=== PATIENT | male | born 1955 | race Caucasian/White ===

== ENCOUNTER 2021-03-16 15:27 | Inpatient (IN) | payer MEDICARE, OTHER ==
[~2021-03-16] VITALS: Ht 172.7 cm; Wt 64.5 kg
[~2021-03-16 15:27] MED LIST: KEFLEX500 MG PO; LOTRIMIN CREAM15 GM TP
[2021-03-16 17:12] LABS: HEMOGLOBIN 12.5 gm/dl (14.0-17.5); RED BLOOD COUNT 4.13 M/UL (4.20-5.50); WHITE BLOOD COUNT 14.1 K/UL (4.5-11.0)
[2021-03-16 17:36] LABS: BUN/CREATININE RATIO 30 (0-10)
[2021-03-17 04:02] LABS: HEMOGLOBIN 12.4 gm/dl (14.0-17.5); RED BLOOD COUNT 4.13 M/UL (4.20-5.50)
[2021-03-17 04:03] LABS: WHITE BLOOD COUNT 22.5 K/UL (4.5-11.0)
[2021-03-17 04:29] LABS: BUN/CREATININE RATIO 26 (0-10)
[2021-03-18 10:14] LABS: HBSAG SCREEN Negative (Negative); HEP A AB, IGM Negative (Negative); HEP B CORE AB, IGM Negative (Negative); HEP C VIRUS AB 1.9 (0.0-0.9)
[2021-03-18 10:38] LABS: BUN/CREATININE RATIO 29 (0-10)
[2021-03-18 10:40] LABS: HEMOGLOBIN 11.3 gm/dl (14.0-17.5); RED BLOOD COUNT 3.79 M/UL (4.20-5.50); WHITE BLOOD COUNT 24.8 K/UL (4.5-11.0)
[2021-03-19 05:35] LABS: HEMOGLOBIN 11.4 gm/dl (14.0-17.5); RED BLOOD COUNT 3.78 M/UL (4.20-5.50); WHITE BLOOD COUNT 22.6 K/UL (4.5-11.0)
[2021-03-19 05:52] LABS: BUN/CREATININE RATIO 28 (0-10)
[2021-03-19 22:18] LABS: BORDETELLA PARAPERTUSSIS Not Detected (Not Detectd); BORDETELLA PERTUSSIS Not Detected (Not Detectd); CHLAMYDIA PNEUMONIAE Not Detected (Not Detectd); CORONAVIRUS HKU1 Not Detected (Not Detectd); CORONAVIRUS NL63 Not Detected (Not Detectd); CORONAVIRUS OC43 Not Detected (Not Detectd); CORONOAVIRUS 229E Not Detected (Not Detectd); HUMAN METAPNEUMOVIRUS Not Detected (Not Detectd); HUMAN RHINOVIRUS/ENTEROVIRUS Not Detected (Not Detectd); INFLUENZA A Not Detected (Not Detectd); INFLUENZA B Not Detected (Not Detectd); MYCOPLASMA PNEUMONIAE Not Detected (Not Detectd); PARAINFLUENZA VIRUS 1 Not Detected (Not Detectd); PARAINFLUENZA VIRUS 2 Not Detected (Not Detectd); PARAINFLUENZA VIRUS 3 Not Detected (Not Detectd); PARAINFLUENZA VIRUS 4 Not Detected (Not Detectd); RESPIRATORY SYNCYTIAL VIRUS Not Detected (Not Detectd)
[2021-03-19 23:21] LABS: SARS-CoV-2 NOT DETECTED (Not Detectd)
[2021-03-20 05:56] LABS: BUN/CREATININE RATIO 41 (0-10)
--- NOTE | 2021-03-20 06:19 | NUR ---
0515 5 RANDOM TICKS FOUND ON PATIENTS BODY DURING BATH. INFORMED. NO NEW ORDERS.
[2021-03-20 08:58] LABS: HEMOGLOBIN 10.4 gm/dl (14.0-17.5); RED BLOOD COUNT 3.48 M/UL (4.20-5.50)
[2021-03-20 08:59] LABS: WHITE BLOOD COUNT 14.3 K/UL (4.5-11.0)
[2021-03-21 05:27] LABS: HEMOGLOBIN 11.7 gm/dl (14.0-17.5)
[2021-03-21 05:29] LABS: RED BLOOD COUNT 3.91 M/UL (4.20-5.50); WHITE BLOOD COUNT 18.2 K/UL (4.5-11.0)
[2021-03-21 05:53] LABS: BUN/CREATININE RATIO 52 (0-10)
[2021-03-21 14:40] LABS: ADENOVIRUS F 40/41 Not Detected (Negative); ASTROVIRUS Not Detected (Negative); CAMPYLOBACTER Not Detected (Negative); CLOSTRIDIUM DIFFICILE TOX A/B Not Detected (Negative); CRYPTOSPORIDIUM Not Detected (Negative); E.COLI 0157 Not Detected (Negative); ENTAMOEBA HISTOLYTICA Not Detected (Negative); ENTEROAGGREGATIVE E.COLI (EAEC Not Detected (Negative); ENTEROPATHOGENIC E.COLI (EPEC) Not Detected (Negative); ENTEROTOXIGENIC E.COLI (ETEC) Not Detected (Negative); GIARDIA LAMBLIA Not Detected (Negative); NOROVIRUS GI/GII Not Detected (Negative); PLESIOMONAS SHIGELLOIDES Not Detected (Negative); ROTOVIRUS A Not Detected (Negative); SALMONELLA Not Detected (Negative); SAPOVIRUS Not Detected (Negative); SHIG/ENTEROINVAS.ECOLI (EIEC) Not Detected (Negative); SHIGA-LIK TOX.PRO.E.COLI (STEC Not Detected (Negative); VIBRIO Not Detected (Negative); VIBRIO CHOLERAE Not Detected (Negative); YERSINIA ENTEROCOLITICA Not Detected (Negative)
[2021-03-22 04:34] LABS: HEMOGLOBIN 13.1 gm/dl (14.0-17.5); WHITE BLOOD COUNT 14.7 K/UL (4.5-11.0)
[2021-03-22 04:52] LABS: RED BLOOD COUNT 4.39 M/UL (4.20-5.50)
[2021-03-22 05:06] LABS: BUN/CREATININE RATIO 46 (0-10)
[2021-03-22 12:14] LABS: ORGANISM ID Not indicated. (.); SPECIMEN SOURCE Urine (.); STREPTOCOCCUS PNEUMONIAE AG Negative (Negative)
[2021-03-23 06:57] LABS: HEMOGLOBIN 13.5 gm/dl (14.0-17.5); RED BLOOD COUNT 4.47 M/UL (4.20-5.50); WHITE BLOOD COUNT 12.3 K/UL (4.5-11.0)
[2021-03-23 07:20] LABS: BUN/CREATININE RATIO 29 (0-10)
[2021-03-23] MEDS ORDERED: LEVOFLOXACIN500 MG PO (10:50)
[2021-03-23] MEDS ORDERED: METOPROLOL SUCC25 MG PO (10:50)
[2021-03-23] MEDS ORDERED: MEDROL4 MG PO (10:50)
[2021-03-24 14:15] LABS: HCV ANTIBODY VERIFICATION Non Reactive (Non Reactive)
== END 2021-03-23 13:23 | disposition home or self-care (01) | DRG 871 ==
LOC: ER1 15:27 → CDU 22:42 → MED SURG 4 22:42 → CCU 22:42 → MED SURG 4 03-22 18:40
PROVIDERS: Internal Medicine; Internal Medicine Pulmonary Disease; Physician Assistant; ADMIT Internal Medicine
PROC: 5A1945Z Respiratory Ventilation, 24-96 Consecutive Hours (ICD-10-PCS; principal; 2021-03-19)
PROC: 0BH17EZ Insertion of Endotracheal Airway into Trachea, Via Natural or Artificial Opening (ICD-10-PCS; 2021-03-19)
DX: A41.89 Other specified sepsis (principal); J18.1 Lobar pneumonia, unspecified organism; J80 Acute respiratory distress syndrome; J44.1 Chronic obstructive pulmonary disease with (acute) exacerbation; F19.10 Other psychoactive substance abuse, uncomplicated; F15.90 Other stimulant use, unspecified, uncomplicated; I48.91 Unspecified atrial fibrillation; E86.0 Dehydration; R79.89 Other specified abnormal findings of blood chemistry; E87.6 Hypokalemia; R01.1 Cardiac murmur, unspecified; I34.0 Nonrheumatic mitral (valve) insufficiency; F41.9 Anxiety disorder, unspecified; D53.9 Nutritional anemia, unspecified; R74.01 Elevation of levels of liver transaminase levels; R00.0 Tachycardia, unspecified; Z20.822 Contact with and (suspected) exposure to COVID-19; R65.20 Severe sepsis without septic shock; J44.9 Chronic obstructive pulmonary disease, unspecified; Z80.9 Family history of malignant neoplasm, unspecified
CPT/HCPCS: ECHO; 0240U; 31500; 36415; 36600; 71045; 71046; 71250; 71260; 76705; 80048; 80053; 80074; 80076; 80202; 81001; 82550; 82553; 82803; 82962; 83605; 83735; 83874; 83880; 84484; 85025; 85027; 86738; 86803; 86804; 87040; 87070; 87205; 87278; 87507; 87633; 87899; 93005; 93306; 94002; 94003; 94640; 94660; 94664; 94760; 96365; 96366; 96375; 97110; 97162; 97166; 99285; G0378; J0456; J0696; J1650; J1940; J2060; J2185; J2370; J2543; J2704; J2920; J2930; J3010; J3370; J3480; J7030; J7040; J7070; Q9967

== ENCOUNTER 2021-04-04 15:22 | Emergency (ER) | payer MEDICARE, OTHER ==
[~2021-04-04 15:22] MED LIST changes: +LEVOFLOXACIN500 MG PO; +MEDROL4 MG PO; +METOPROLOL SUCC25 MG PO
== END 2021-04-04 19:40 | disposition left against medical advice (07) ==
LOC: ER1 15:22
DX: Z53.21 Procedure and treatment not carried out due to patient leaving prior to being seen by health care provider (principal)

== ENCOUNTER 2021-11-25 14:54 | Inpatient (IN) | payer MEDICARE, OTHER ==
[~2021-11-25] VITALS: Ht 180.3 cm; Wt 63.5 kg
[2021-11-25 17:23] LABS: HEMOGLOBIN 12.8 gm/dl (14.0-17.5); RED BLOOD COUNT 4.51 M/UL (4.20-5.50); WHITE BLOOD COUNT 2.8 K/UL (4.5-11.0)
[2021-11-25 17:46] LABS: BUN/CREATININE RATIO 27 (0-10)
--- NOTE | 2021-11-26 14:57 | NUR ---
11/26/21 1451 FAXING FACESHEET TO OBTAIN RECORDS FROM [facility]
--- NOTE | 2021-11-26 18:01 | NUR ---
11/26/21 1800 REPORT CALLED TO JOSE DE JESUS. TRANSFERRED TO ROOM [id number] VIA WC BELONGINGS TAKEN WITH PATIENT
== END 2021-11-27 11:55 | disposition home or self-care (01) | DRG 390 ==
LOC: ER1 14:54 → CDU 21:08 → 3 EAST 11-26 03:56 → MED SURG 4 11-26 18:21
PROVIDERS: Preventive Medicine Occupational Medicine; ADMIT Surgery
DX: K56.600 Partial intestinal obstruction, unspecified as to cause (principal); Z20.822 Contact with and (suspected) exposure to COVID-19; F15.10 Other stimulant abuse, uncomplicated; Z98.890 Other specified postprocedural states; Z79.899 Other long term (current) drug therapy
CPT/HCPCS: 80053; 81001; 83605; 83690; 85025; 86140; 87086; 96374; 96375; 99285; J1170; J2405; J7030; Q9967; U0002

== ENCOUNTER 2021-11-30 10:11 | Emergency (ER) | payer MEDICARE, OTHER ==
[2021-11-30 10:58] LABS: HEMOGLOBIN 12.5 gm/dl (14.0-17.5); RED BLOOD COUNT 4.36 M/UL (4.20-5.50); WHITE BLOOD COUNT 10.6 K/UL (4.5-11.0)
[2021-11-30 11:29] LABS: BUN/CREATININE RATIO 15 (0-10)
[2021-11-30] MEDS ORDERED: MOBIC15 MG PO (14:13)
[2021-11-30] MEDS ORDERED: AZITHROMYCIN500 MG PO (14:47)
[2021-11-30] MEDS ORDERED: CEFDINIR300 MG PO (14:47)
== END 2021-11-30 18:00 | disposition home or self-care (01) ==
LOC: ER1 10:11
PROVIDERS: Physician Assistant
DX: K42.9 Umbilical hernia without obstruction or gangrene (principal); J18.9 Pneumonia, unspecified organism
CPT/HCPCS: 71045; 74019; 80053; 81001; 83690; 85025; 99284; U0003

== ENCOUNTER 2022-07-10 01:44 | Emergency (ER) | payer MEDICARE ==
[~2022-07-10 01:44] MED LIST changes: +AZITHROMYCIN500 MG PO; +CEFDINIR300 MG PO; +MOBIC15 MG PO
[2022-07-10 02:14] LABS: HEMOGLOBIN 14.3 gm/dl (14.0-17.5); RED BLOOD COUNT 4.74 M/UL (4.20-5.50); WHITE BLOOD COUNT 5.2 K/UL (4.5-11.0)
[2022-07-10 02:42] LABS: BUN/CREATININE RATIO 16 (0-10)
[2022-07-10] MEDS ORDERED: PROAIR HFA8.5 GM INH (03:39)
[2022-07-10] MEDS ORDERED: PREDNISONE50 MG PO (03:39)
[2022-07-10] MEDS ORDERED: PAXLOVID 300-11 EACH PO (03:39)
== END 2022-07-10 03:47 | disposition home or self-care (01) ==
LOC: ER1 01:44
DX: U07.1 COVID-19 (principal); J43.9 Emphysema, unspecified; I48.91 Unspecified atrial fibrillation; Z87.01 Personal history of pneumonia (recurrent)
CPT/HCPCS: 71045; 80053; 82550; 82553; 84484; 85025; 93005; 99284; U0002